=== PATIENT | male | born 1930 | race Caucasian/White ===

== ENCOUNTER 2017-05-07 11:15 | Emergency (ER) | payer MEDICARE, BC ==
[~2017-05-07] VITALS: Ht 182.9 cm; Wt 81.6 kg
[~2017-05-07 11:15] MED LIST: EYE VITAMINS PO; METOPROLOL SUCC25 MG PO; SERTRALINE HCL50 MG PO; TAMSULOSIN HCL0.4 MG PO; XARELTO PO
--- NOTE | 2017-05-07 12:23 | Diagnostic Imaging Report ---
PROCEDURE: Frontal and lateral views of the chest. COMPARISON: None. INDICATIONS: FEVER, COUGH, CHILLS FINDINGS: Lines/tubes: Left chest wall single lead cardiac device in place with tip overlying right ventricle. Lungs: The lungs are well inflated and clear. There is no evidence of pneumonia or pulmonary edema. Minimal left basilar subsegmental atelectasis. Pleura: There is no pleural effusion or pneumothorax. Heart and mediastinum: The cardiac silhouette is borderline enlarged. Aorta is calcified and mildly tortuous. Bones: No acute bony abnormality. IMPRESSION: 1. No acute cardiopulmonary disease. Dictated by: Parker Garnica M.D. on 05/07/2017 at 12:32 Electronically approved by: Parker Garnica M.D. on 05/07/2017 at 12:32
[2017-05-07 13:07] VITALS: BP 109/63
== END 2017-05-07 13:18 | disposition home or self-care (01) ==
LOC: ER 11:15
DX: J06.9 Acute upper respiratory infection, unspecified (principal); R05 Cough; Z86.73 Personal history of transient ischemic attack (TIA), and cerebral infarction without residual deficits; Z95.0 Presence of cardiac pacemaker
CPT/HCPCS: 71046

== ENCOUNTER 2018-02-27 09:37 | Emergency (ER) | payer MEDICARE, BC ==
[~2018-02-27] VITALS: Ht 182.9 cm; Wt 81.6 kg
--- OUTSIDE RECORDS SUMMARY | 2018-02-27 09:40 | XMS REPORT ---
Author Author [facility] Address Unknown Phone Unavailable Care Team Providers Care Harmonic Analyst Name Role Phone Abilio LUNA Unavailable Unavailable Problems This patient has no known problems. Allergies, Adverse Reactions, Alerts This patient has no known allergies or adverse reactions. Medications This patient has no known medications. Results Test Description Test Time Test Comments Text Results Atomic Results Result Comments CHEST 2 VIEWS [place] [address] Patient Name: GUNJAN FENTON MR #: [id number] : 1930 Age/Sex: 86/M Req #: [id number] Adm Physician: Ordered by: EDSON CORRALES Report #: [id number] Location: ER Room/Bed: Procedure: [id number] DX/CHEST 2 VIEWS Exam Date: Exam Time: REPORT STATUS: Signed PROCEDURE: Frontal and lateral views of the chest. COMPARISON: None. INDICATIONS: FEVER, COUGH, CHILLS FINDINGS: Lines/tubes: Left chest wall single lead cardiac device in place with tip overlying right ventricle. Lungs: The lungs are well inflated and clear. There is no evidence of pneumonia or pulmonary edema. Minimal left basilar subsegmental atelectasis. Pleura: There is no pleural effusion or pneumothorax. Heart and mediastinum: The cardiac silhouette is borderline enlarged. Aorta is calcified and mildly tortuous. Bones: No acute bony abnormality. IMPRESSION: 1. No acute cardiopulmonary disease. Dictated by: Parker Nowak M.D. on 05/07/2017 at 12:32 Electronically approved by: Parker Nowak M.D. on 05/07/2017 at 12:32 Dictated By: PARKER NOWAK MD [id number] Transcribed By: TONI on 05/07/17 1232 COPY TO: EDSON CORRALES
== END 2018-02-27 11:05 | disposition home or self-care (01) ==
LOC: ER 09:37
DX: J02.0 Streptococcal pharyngitis (principal); I51.9 Heart disease, unspecified; Z95.0 Presence of cardiac pacemaker
CPT/HCPCS: 99282

== ENCOUNTER 2018-05-01 18:40 | Emergency (ER) | payer MEDICARE ==
[~2018-05-01] VITALS: Ht 182.9 cm; Wt 81.6 kg
[2018-05-01] MEDS ORDERED: LIDOCAINE 1% W/EPINEPHRINE 20 ML VIAL INJ ONE (19:15)
[2018-05-01] MEDS ORDERED: PENICILLIN V P500 MG PO (20:41)
[2018-05-01 20:48] VITALS: BP 146/65
== END 2018-05-01 21:59 | disposition home or self-care (01) ==
LOC: ER 18:40
DX: K08.89 Other specified disorders of teeth and supporting structures (principal); I10 Essential (primary) hypertension; Z86.73 Personal history of transient ischemic attack (TIA), and cerebral infarction without residual deficits
CPT/HCPCS: 99282

== ENCOUNTER 2018-10-13 15:42 | Inpatient (IN) | payer MEDICARE, BC ==
[~2018-10-13] VITALS: Ht 182.9 cm; Wt 79.8 kg
[~2018-10-13 15:42] MED LIST changes: +PENICILLIN V P500 MG PO
[2018-10-13] MEDS ORDERED: SODIUM CHLORIDE 0.9% 1000ML 1,000 ML IV STA (16:20)
[2018-10-13 16:56] LABS: BASOPHILS # (AUTO) 0.3 (0.0-0.1); EOSINOPHILS # (AUTO) 0.1 (0.0-0.4); EOSINOPHILS % 0.4 % (0.0-6.0); HEMATOCRIT 35.1 % (38.2-49.6); HEMOGLOBIN 11.4 g/dL (14.0-18.0); LYMPHOCYTES # (AUTO) 1.5 (1.0-3.2); LYMPHOCYTES % 6.2 % (18.0-39.1); MEAN CORPUSCULAR HEMOGLOBIN 30.1 pg (28-32); MEAN CORPUSCULAR HGB CONC 32.5 g/dL (31-35); MEAN CORPUSCULAR VOLUME 92.6 fL (81-99); MONOCYTES % 16.2 % (4.4-11.3); NEUTROPHILS # (AUTO) 16.5 (2.1-6.9); NEUTROPHILS % 66.9 % (38.7-80.0); PLATELET COUNT 221 x10e3/uL (140-360); RED BLOOD COUNT 3.79 x10e6/uL (4.3-5.7); RED CELL DISTRIBUTION WIDTH 15.2 % (11.7-14.4)
[2018-10-13 17:11] LABS: ALBUMIN 3.6 g/dL (3.5-5.0); ALBUMIN/GLOBULIN RATIO 1.1 (0.8-2.0); ANION GAP 16.8 mmol/L (8-16); CALCIUM 9.4 mg/dL (8.4-10.2); CREATININE, SERUM 1.16 mg/dL (0.72-1.25); MAGNESIUM 2.2 MG/DL (1.3-2.1); POTASSIUM 3.8 mmol/L (3.5-5.1)
--- NOTE | 2018-10-13 17:11 | NUR ---
WENT OUTSIDE TO SMOKE AND THEN WHEN ASKED TO SIGN PAPERWORK, PT REFUSED SAID COULD AND HE WANTED A WHEELCHAIR.
[2018-10-13] MEDS ORDERED: IOPAMIDOL 370 MG/ML 200 ML INFUS..BTL INJ ONE ×2 (17:25→18:05)
[2018-10-13] MEDS ORDERED: SODIUM CHLORIDE 0.9% 50ML 50 ML ONE ×2 (17:25→18:05)
[2018-10-13 18:17] LABS: BILIRUBIN,URINE NEGATIVE (NEGATIVE); CLARITY,URINE SL CLOUDY (CLEAR); COLOR,URINE YELLOW (YELLOW); KETONES,URINE NEGATIVE (NEGATIVE); LEUKOCYTE ESTERASE ,URINE NEGATIVE (NEGATIVE); NITRITE,URINE NEGATIVE (NEGATIVE); PROTEIN,URINE DIPSTICK 1+ (NEGATIVE); URINE UROBILINOGEN 0.2 mg/dL (0.2 - 1)
--- NOTE | 2018-10-13 18:36 | Diagnostic Imaging Report ---
EXAM: CT Abdomen and Pelvis WITH contrast INDICATION: ^diarrhea and abdominal pain ^[id number] ^1745 ^Y COMPARISON: None. TECHNIQUE: Abdomen and pelvis were scanned utilizing a multidetector helical scanner from the lung base to the pubic symphysis after administration of IV contrast. Coronal and sagittal reformations were obtained. Routine protocol was performed. Scan was performed when during portal venous phase. IV CONTRAST: 100 mL of Isovue-370 ORAL CONTRAST: Water RADIATION DOSE: Total DLP: 450.9 mGy*cm Estimated effective dose: (DLP x 0.015 x size factor) mSv COMPLICATIONS: None FINDINGS: LINES and TUBES: Partially visualized ICD lead in the right ventricle. The right atrium is dilated. Subsegmental atelectasis in both lung bases. LOWER THORAX: Unremarkable HEPATOBILIARY: No focal hepatic lesions. No biliary ductal dilation. GALLBLADDER: The gallbladder is distended without visualized calcified stones. It measures 9.2 cm in length x 5 cm in width. No wall thickening. SPLEEN: No splenomegaly. Multiple granulomas in the spleen. PANCREAS: No focal masses or ductal dilatation. Fatty atrophy of the pancreas. ADRENALS: No adrenal nodules KIDNEYS/URETERS: Kidneys enhance symmetrically. No hydronephrosis. No cystic or solid mass lesions. No stones. GI TRACT: No abnormal distention, wall thickening, or evidence of bowel obstruction. Extensive diverticulosis throughout the sigmoid colon with surrounding mild hyperemia and minimal fat stranding may reflect early acute diverticulitis. No surrounding fluid collections. Appendix is nonvisualized. PELVIC ORGANS/BLADDER: Unremarkable. LYMPH NODES: No lymphadenopathy. VESSELS: Atherosclerotic calcifications of the abdominal aorta and pelvic arteries without aneurysm. PERITONEUM / RETROPERITONEUM: No free air or fluid. BONES: Moderate wedge compression deformity of L3 vertebral body. No retropulsion of the bony fragments. SOFT TISSUES: Unremarkable. IMPRESSION: Diffuse diverticulosis of the sigmoid colon with associated mild hyperemia and minimal fat stranding suggestive of early diverticulitis. Signed by: Dr. Serenity Madrid M.D. on 10/13/2018 6:33 PM
[2018-10-13 19:14] LABS: RBC,URINE 0-5 /HPF (0-5)
[2018-10-13 19:15] LABS: BACTERIA,URINE RARE /HPF; EPITHELIAL CELLS,URINE FEW /LPF
[2018-10-13] MEDS ORDERED: ONDANSETRON HCL INJ 2MG/ML 2ML 2 MG/ML VIAL IV PRN (19:45)
[2018-10-13] MEDS ORDERED: MORPHINE SULFATE INJ 4 MG/ML INJ 1ML IV PRN (19:45)
[2018-10-13] MEDS ORDERED: PROMETHAZINE HCL (IM) 25 MG/ML VIAL IV PRN (19:45)
[2018-10-13] MEDS ORDERED: LEVOFLOXACIN 500MG/D5W 100ML IV SCH (19:45)
[2018-10-13 19:51] LABS: EOSINOPHILS % (MANUAL) 2 % (0-7); LYMPHOCYTES % (MANUAL) 5 % (19-48); MONOCYTES % (MANUAL) 22 % (3.4-9.0); MYELOCYTES % (MANUAL) 1 % (0-0); NEUTROPHILS % (MANUAL) 68 % (40-74)
[2018-10-13 19:52] LABS: PLATELET ESTIMATE ADEQUATE; RBC MORPHOLOGY COMMENT NORMAL
[2018-10-13 19:53] LABS: PLATELET MORPHOLOGY COMMENT NORMAL
[2018-10-13] MEDS: LEVOFLOXACIN 500MG/D5W 100ML 100 ML IV SCH (20:10)
[2018-10-13] MEDS ORDERED: TETRACAINE HCL 0.5% OPTH SOLN 4 ML BTL OP ONE (20:15)
--- NOTE | 2018-10-13 22:00 | NUR ---
Received report from ER nurse.
[2018-10-13 22:20] VITALS: BP 135/66
--- NOTE | 2018-10-13 22:20 | NUR ---
Patient arrived to floor via stretcher. AAOx3 with slight weakness to right side. Has 2 small decub. to buttocks slightly open. Oneyda to would. Wound consult ordered.
[2018-10-13 23:09] VITALS: BP 136/59
[2018-10-13 23:09] LABS: CREATINE KINASE MB 1.3 ng/mL (0-5.0)
[2018-10-14] VITALS (8 sets, daily range): BP systolic 107–128; BP diastolic 53–68
[2018-10-14] MEDS ORDERED: METRONIDAZOLE 500MG/NS 100ML IV SCH
--- NOTE | 2018-10-14 | NUR ---
Patient resting quitly with no c/o at this time. Continue monitor
[2018-10-14] MEDS ORDERED: SODIUM CHLORIDE 0.9% 250ML 250 ML ONE (00:56)
[2018-10-14 05:21] LABS: BASOPHILS # (AUTO) 0.2 (0.0-0.1); BASOPHILS % 1.2 % (0.0-1.0); EOSINOPHILS # (AUTO) 0.1 (0.0-0.4); EOSINOPHILS % 0.4 % (0.0-6.0); HEMATOCRIT 29.3 % (38.2-49.6); HEMOGLOBIN 9.4 g/dL (14.0-18.0); LYMPHOCYTES # (AUTO) 1.9 (1.0-3.2); LYMPHOCYTES % 9.8 % (18.0-39.1); MEAN CORPUSCULAR HEMOGLOBIN 29.8 pg (28-32); MEAN CORPUSCULAR HGB CONC 32.1 g/dL (31-35); MONOCYTES # (AUTO) 3.1 (0.2-0.8); MONOCYTES % 15.9 % (4.4-11.3); NEUTROPHILS # (AUTO) 12.1 (2.1-6.9); NEUTROPHILS % 62.6 % (38.7-80.0); PLATELET COUNT 184 x10e3/uL (140-360); RED BLOOD COUNT 3.15 x10e6/uL (4.3-5.7)
--- NOTE | 2018-10-14 05:24 | NUR ---
No noted changes in patient condition.
--- NOTE | 2018-10-14 05:27 | NUR ---
Patient refused dressing to stage2 wounds. Informed patient of possible contamination of stool on open wound but patient refused.
[2018-10-14] MEDS: METRONIDAZOLE 500MG/NS 100ML 100 ML IV SCH ×5 (05:29→23:46)
[2018-10-14 05:46] LABS: CREATINE KINASE MB 1.7 ng/mL (0-5.0)
--- NOTE | 2018-10-14 07:00 | NUR ---
Rcvd patient in report this am. Patient is awake and in the bathroom at this time. No s/s of distress noted
[2018-10-14 07:05] LABS: ALANINE AMINOTRANSFERASE 11 IU/L (0-55); ALBUMIN 2.9 g/dL (3.5-5.0); ALBUMIN/GLOBULIN RATIO 0.9 (0.8-2.0); ALKALINE PHOSPHATASE 84 IU/L (40-150); ANION GAP 10.7 mmol/L (8-16); BLOOD UREA NITROGEN 16 mg/dL (7-26); BUN/CREATININE RATIO 16 (6-25); CALCIUM 8.3 mg/dL (8.4-10.2); CARBON DIOXIDE 23 mmol/L (22-29); CHLORIDE 107 mmol/L (98-107); CREATININE, SERUM 0.98 mg/dL (0.72-1.25); EST GLOMERULAR FILTRATION RATE > 60 ML/MIN (60-); GLUCOSE 92 mg/dL (74-118); POTASSIUM 3.7 mmol/L (3.5-5.1); SODIUM 137 mmol/L (136-145)
--- NOTE | 2018-10-14 08:15 | NUR ---
RCD REPORT PT RESTING ON BED NO SIGNS OF ANY DISTRESS NOTE IV PATENT FAMILY AT BED SIDE BED LOW AND LOCKED CALL LIGHT IN REACH
[2018-10-14 08:30] LABS: EOSINOPHILS % (MANUAL) 2 % (0-7); LYMPHOCYTES % (MANUAL) 10 % (19-48); METAMYELOCYTES % (MANUAL) 3 % (0-0); MONOCYTES % (MANUAL) 14 % (3.4-9.0); NEUTROPHILS % (MANUAL) 70 % (40-74)
[2018-10-14 08:31] LABS: PLATELET ESTIMATE ADEQUATE; PLATELET MORPHOLOGY COMMENT NORMAL; RBC MORPHOLOGY COMMENT NORMAL
[2018-10-14] MEDS ORDERED: OMEPRAZOLE40 MG PO (09:10)
[2018-10-14] MEDS ORDERED: XARELTO20 MG PO (09:10)
[2018-10-14] MEDS ORDERED: FINASTERIDE5 MG PO (09:10)
[2018-10-14] MEDS ORDERED: SIMVASTATIN20 MG PO (09:10)
--- NOTE | 2018-10-14 10:24 | NUR ---
WOUND CARE NURSE INITIAL CONSULTATION. 87 YEAR OLD MALE ADMITTED TO [facility] WITH DX OF DIVERTICULITIS AND DIARRHEA. HEAD TO TOE SKIN ASSESSMENT PERFORMED TODAY. PT PRESENTS WITH A 1X1CM STAGE I TO BILATERAL BUTTOCKS. THERE ARE NO OTHER AREAS OF CONCERN NOTED AT THIS TIME. NO S/S OF INFECTION. PT EDUCATED ON PRESSURE RELIED TO THE AFFECTED AREAS, STATES UNDERSTANDING. LABS: WBC: 19.40 ALB: 32.9 GLUCOSE: 2.[address] PT ON ALTERNATING LOW AIR LOSS MATTRESS PROVIDE PT WITH BILATERAL HEEL PROTECTORS. TURN PT EVERY TWO HOURS AND PRN. APPLY VENELEX WITH FOAM DRESSING DAILY AND PRN TO BILATERAL BUTTOCKS. THANKS DR. PEREZ FOR THIS CONSULTATION. Addendum: 10/14/18 at 1030 by Camilla Villarreal RN Amended: Links added.
[2018-10-14 14:11] LABS: CREATINE KINASE 133 IU/L (30-200)
[2018-10-14] MEDS: BALSAM PERU/CASTOR OIL 60 GM OINT...G. TP SCH (16:02)
[2018-10-14] MEDS ORDERED: ONDANSETRON HCL INJ 2MG/ML 2ML 2 MG/ML VIAL IV PRN (16:45)
--- NOTE | 2018-10-14 19:05 | NUR ---
PT RESTING ON BED BED SIDE REPORT GIVEN TO ONCOMING NURSE
--- NOTE | 2018-10-14 19:57 | History and Physical ---
MEDICINE HISTORY AND PHYSICAL CHIEF COMPLAINT: Abdominal pain and diarrhea. HISTORY OF PRESENT ILLNESS: An 87-year-old male, history of BPH, hyperlipidemia, atrial fibrillation on an rate control, comes into ED with complaints of diarrhea ongoing for the 6 days. The patient denies abdominal pain, but endorses having loose watery stool with no blood, ongoing for the last 6 days. He denies being foul smelling in nature. Denies any recent antibiotic use at home. Due to the worsening diarrhea, he came in to further evaluation and management evaluation. The patient denies any abdominal. He still while in the hospital today. He was started on IV antibiotics. GI has been consulted. REVIEW OF SYSTEMS: Pertinent positives: Diarrhea, loose watery stools. Pertinent negative: Denies any chest pain, palpitation, nausea, vomiting, frequency, urgency, lightheadedness, dizziness, abdominal pain, headaches, shortness of breath, cough, congestion, fever, or any other musculoskeletal etiology. The rest of 14-point review of systems are reviewed with the patient and are negative. ALLERGIES: NO KNOWN DRUG ALLERGIES. MEDICATIONS: Fenestra 5 mg daily, metoprolol ER 25 mg daily, omeprazole 40 mg daily, Xarelto 20 mg at bedtime, sertraline 50 mg daily, simvastatin 10 mg daily, and tamsulosin 0.4 mg at bedtime. PAST MEDICAL HISTORY: BPH, hyperlipidemia, atrial fibrillation on rate control anticoagulation. PAST SURGICAL HISTORY: Reports none. FAMILY HISTORY: Hypertension and diabetes. SOCIAL HISTORY: No drugs. No alcohol. Does not smoke. Good support. PHYSICAL EXAMINATION: VITAL SIGNS: Temperature is 96, pulse is 86, respiratory rate is 20, blood pressure 116/61, and pulse ox 98% on room air. GENERAL: Not in acute distress. Alert and oriented x3. Cooperative on examination. HEENT: Head is normocephalic and atraumatic. Eyes; pupils are equal, round, and reactive to light bilaterally. Extraocular movements are intact. Throat, no evidence of erythema or exudates in the posterior pharynx. Has poor dentition. NECK: Supple. Good range of motion. PULMONARY: Clear to auscultation bilaterally. No wheezing, no rales, no rhonchi, no crackles appreciated. CARDIOVASCULAR: Positive S1 and S2. No murmurs, rubs, or gallops appreciated. ABDOMEN: Soft, nondistended, and nontender to palpation. Bowel sounds present. MUSCULOSKELETAL: Strength is 5/5 throughout. No evidence of any muscle deficits on examination. No weakness appreciated. NEUROLOGICAL: Cranial nerves II through XII grossly intact. No evidence of any neurological deficits on exam. SKIN: Intact. Warm to touch. Good cap refill. PSYCHIATRIC: Normal affect and mood. EXTREMITIES: No edema. Good range of motion throughout. LABORATORY FINDINGS: Show white count on admission was 25, now down to 19, hemoglobin 9.4, hematocrit 29, and platelets of 184. Chemistry; sodium 137, potassium 3.7, chloride 107, bicarb 29, anion gap 10, BUN 16, creatinine 0.98, glucose is 92, and calcium is 8.3. LFTs were normal. Total protein 6, albumin 2.9, lipase is 15. Troponins were negative. Urinalysis was negative. C. difficile was negative. MICROBIOLOGY: None. IMAGING STUDIES: CT abdomen and pelvis shows diffuse diverticulosis of the sigmoid colon with associated mild and mild fat stranding suggesting early diverticulitis. ASSESSMENT: History of atrial fibrillation, on rate control on anticoagulation. . We will continue with IV fluids for now. Advance diet to full liquid. with very minimal pain and he is tolerating diet. He will likely be discharged home once cleared by GI. We will discharge home on oral antibiotics. Otherwise, continue same medications . MD SHANE Merritt/MATTY /[id number]
--- NOTE | 2018-10-14 20:00 | NUR ---
Patient refused bed alarm on. Stated he gets up often at night to go to the restroom.
[2018-10-14] MEDS: LEVOFLOXACIN 500MG/D5W 100ML 100 ML IV SCH (20:28)
[2018-10-14] MEDS: TAMSULOSIN HCL 0.4 MG CAP PO SCH (20:28)
[2018-10-14] MEDS: RIVAROXABAN 20 MG TABLET PO SCH (20:28)
[2018-10-14] MEDS: SIMVASTATIN 20 MG TAB PO SCH (20:29)
[2018-10-15] VITALS (7 sets, daily range): BP systolic 103–140; BP diastolic 47–63
[2018-10-15 05:25] LABS: BASOPHILS # (AUTO) 0.3 (0.0-0.1); BASOPHILS % 1.4 % (0.0-1.0); EOSINOPHILS # (AUTO) 0.3 (0.0-0.4); EOSINOPHILS % 1.3 % (0.0-6.0); HEMATOCRIT 29.9 % (38.2-49.6); HEMOGLOBIN 9.9 g/dL (14.0-18.0); LYMPHOCYTES % 10.5 % (18.0-39.1); MEAN CORPUSCULAR HEMOGLOBIN 30.6 pg (28-32); MEAN CORPUSCULAR HGB CONC 33.1 g/dL (31-35); MEAN CORPUSCULAR VOLUME 92.3 fL (81-99); MONOCYTES # (AUTO) 3.1 (0.2-0.8); MONOCYTES % 16.5 % (4.4-11.3); NEUTROPHILS # (AUTO) 10.5 (2.1-6.9); NEUTROPHILS % 55.2 % (38.7-80.0); PLATELET COUNT 182 x10e3/uL (140-360); RED BLOOD COUNT 3.24 x10e6/uL (4.3-5.7); RED CELL DISTRIBUTION WIDTH 14.9 % (11.7-14.4)
[2018-10-15 05:44] LABS: ANION GAP 11.5 mmol/L (8-16); BLOOD UREA NITROGEN 10 mg/dL (7-26); BUN/CREATININE RATIO 11 (6-25); CALCIUM 8.5 mg/dL (8.4-10.2); CARBON DIOXIDE 23 mmol/L (22-29); CHLORIDE 108 mmol/L (98-107); EST GLOMERULAR FILTRATION RATE > 60 ML/MIN (60-); GLUCOSE 109 mg/dL (74-118); POTASSIUM 3.5 mmol/L (3.5-5.1); SODIUM 139 mmol/L (136-145)
[2018-10-15] MEDS: METRONIDAZOLE 500MG/NS 100ML 100 ML IV SCH ×4 (05:47→23:48)
--- NOTE | 2018-10-15 07:00 | NUR ---
RCD PT AT BED PT IS ALERT AND ORIENTED PT RESTING ON BED IV PATENT BED LOW AND LOCKED CALL LIGHT IN REACH
[2018-10-15] MEDS: PANTOPRAZOLE SOD 40 MG TABEC PO SCH (07:30)
[2018-10-15] MEDS: FINASTERIDE 5 MG TAB PO SCH (09:00)
[2018-10-15] MEDS: BALSAM PERU/CASTOR OIL 60 GM OINT...G. TP SCH (09:00)
[2018-10-15] MEDS: SERTRALINE HCL 50 MG TAB PO SCH (09:00)
[2018-10-15] MEDS: METOPROLOL SUCCINATE 25 MG TAB XL PO SCH (09:00)
[2018-10-15] MEDS ORDERED: BALSAM PERU/CASTOR OIL 60 GM OINT...G. TP SCH (12:00)
--- NOTE | 2018-10-15 18:54 | NUR ---
PT RESTING ON BED BED SIDE REPORT GIVEN TO ONCOMING NURSE
--- NOTE | 2018-10-15 19:48 | Progress Note ---
DATE: 10/15/2018 Medicine Progress Note SUBJECTIVE: The patient is doing well today with no complaints. His white count is still elevated. I feel like he may have some underlying CLL. He does not know what his white count is in the past. He is afebrile and his symptoms have improved tremendously. He is on a regular diet. PHYSICAL EXAMINATION: VITAL SIGNS: Temperature is 96, pulse 60, respiratory rate is 18, blood pressure 140/63, and pulse ox 97% on room air. GENERAL: Not in acute distress. Alert and oriented x3. Cooperative on examination. HEENT: Head is normocephalic and atraumatic. Eyes, pupils are equal, round, and reactive to light bilaterally. Extraocular movements are intact. Throat, no evidence of erythema or exudates in the posterior pharynx. Has poor dentition. NECK: Supple. Good range of motion. PULMONARY: Clear to auscultation bilaterally. No wheezing, no rales, no rhonchi, no crackles appreciated. CARDIOVASCULAR: Positive S1 and S2. No murmurs, rubs, or gallops appreciated. ABDOMEN: Soft, nondistended, and nontender to palpation. Bowel sounds present. MUSCULOSKELETAL: Strength is 5/5 throughout. No evidence of any muscle deficits on examination. No weakness appreciated. NEUROLOGICAL: Cranial nerves II through XII are grossly intact. No evidence of neurological deficits on exam. SKIN: Intact. Warm to touch. Good cap refill. PSYCHIATRIC: Normal affect and mood. EXTREMITIES: No edema. Good range of motion throughout. LABORATORY FINDINGS: Show white count 18.9, hemoglobin 9.9, hematocrit 29.9, and platelets are 182. Chemistry; sodium 139, potassium 3.5, chloride 108, bicarb 23, anion gap of 11, BUN 10, creatinine 0.9, glucose is 109, and calcium is 8.5. Troponins were all negative. His lipase was found to be negative. IMPRESSION: 1. Abdominal pain secondary to acute diverticulitis, early stages. 2. Nausea, vomiting, and dehydration secondary to #1. 3. History of diverticulosis. 4. History of benign prostatic hyperplasia. 5. Hyperlipidemia. 6. Depression. 7. Coronary artery disease, on Xarelto according to the family, atrial fibrillation. PLAN: At this time, continue with IV antibiotics. GI consulted to further evaluate and manage. The patient looks great, alert and oriented x4, sitting in a chair with no issues. I am concerned that his white count could be secondary to some sort of CLL or some other etiology. If his white count does not improve by tomorrow, I will go ahead and consider a Hematology consultation for further management and care. I discussed this with the family. They verbalized understanding and agree with plan of care. Otherwise, encourage ambulation and otherwise we will go from there. MD SHANE Merritt/MATTY /[id number]
[2018-10-15] MEDS: RIVAROXABAN 20 MG TABLET PO SCH (20:15)
[2018-10-15] MEDS: TAMSULOSIN HCL 0.4 MG CAP PO SCH (20:15)
[2018-10-15] MEDS: LEVOFLOXACIN 500MG/D5W 100ML 100 ML IV SCH (20:15)
[2018-10-15] MEDS: SIMVASTATIN 20 MG TAB PO SCH (20:15)
[2018-10-16] VITALS (9 sets, daily range): BP systolic 88–123; BP diastolic 50–70
--- NOTE | 2018-10-16 01:32 | NUR ---
bp rechecked 102/53 mmhg. asymptomatic.
[2018-10-16 05:30] LABS: BASOPHILS # (AUTO) 0.3 (0.0-0.1); BASOPHILS % 1.7 % (0.0-1.0); EOSINOPHILS # (AUTO) 0.3 (0.0-0.4); EOSINOPHILS % 1.4 % (0.0-6.0); HEMATOCRIT 29.4 % (38.2-49.6); HEMOGLOBIN 9.7 g/dL (14.0-18.0); LYMPHOCYTES # (AUTO) 1.8 (1.0-3.2); LYMPHOCYTES % 10.2 % (18.0-39.1); MEAN CORPUSCULAR HEMOGLOBIN 30.2 pg (28-32); MEAN CORPUSCULAR VOLUME 91.6 fL (81-99); MONOCYTES # (AUTO) 2.1 (0.2-0.8); MONOCYTES % 12.3 % (4.4-11.3); NEUTROPHILS # (AUTO) 10.1 (2.1-6.9); NEUTROPHILS % 58.1 % (38.7-80.0); PLATELET COUNT 201 x10e3/uL (140-360); RED BLOOD COUNT 3.21 x10e6/uL (4.3-5.7); RED CELL DISTRIBUTION WIDTH 14.8 % (11.7-14.4)
[2018-10-16 05:45] LABS: ANION GAP 10.2 mmol/L (8-16); BLOOD UREA NITROGEN 13 mg/dL (7-26); BUN/CREATININE RATIO 15 (6-25); CALCIUM 8.2 mg/dL (8.4-10.2); CARBON DIOXIDE 22 mmol/L (22-29); CHLORIDE 110 mmol/L (98-107); CREATININE, SERUM 0.89 mg/dL (0.72-1.25); EST GLOMERULAR FILTRATION RATE > 60 ML/MIN (60-); GLUCOSE 103 mg/dL (74-118); POTASSIUM 3.2 mmol/L (3.5-5.1); SODIUM 139 mmol/L (136-145)
[2018-10-16] MEDS: METRONIDAZOLE 500MG/NS 100ML 100 ML IV SCH ×4 (06:03→23:30)
[2018-10-16 07:39] LABS: BAND NEUTROPHILS % (MANUAL) 1 %; EOSINOPHILS % (MANUAL) 1 % (0-7); LYMPHOCYTES % (MANUAL) 24 % (19-48); METAMYELOCYTES % (MANUAL) 2 % (0-0); MONOCYTES % (MANUAL) 7 % (3.4-9.0); NEUTROPHILS % (MANUAL) 65 % (40-74); PLATELET ESTIMATE ADEQUATE
[2018-10-16 07:40] LABS: PLATELET MORPHOLOGY COMMENT NORMAL; RBC MORPHOLOGY COMMENT NORMAL
[2018-10-16] MEDS: PANTOPRAZOLE SOD 40 MG TABEC PO SCH (08:38)
[2018-10-16] MEDS: FINASTERIDE 5 MG TAB PO SCH (08:40)
[2018-10-16] MEDS: BALSAM PERU/CASTOR OIL 60 GM OINT...G. TP SCH (08:40)
[2018-10-16] MEDS: SERTRALINE HCL 50 MG TAB PO SCH (08:40)
[2018-10-16] MEDS: METOPROLOL SUCCINATE 25 MG TAB XL PO SCH (08:57)
[2018-10-16] MEDS: ACETAMINOPHEN 325 MG TAB PO PRN ×2 (08:58→13:07)
--- NOTE | 2018-10-16 09:23 | NUR ---
EDUCATED ABOUT IMM, SIGNED, FILED IN CHART, WITH COPY LEFT WITH FAMILY AT BEDSIDE
[2018-10-16] MEDS ORDERED: POTASSIUM CHLORIDE 20 MEQ TAB CR PO ONE (17:45)
[2018-10-16] MEDS ORDERED: HYDROCODONE/APAP 5MG-325MG TAB PO PRN (18:45)
--- NOTE | 2018-10-16 19:00 | NUR ---
Handoff report to oncoming nurse, patient sitting in chair no s/s of distress, patient verbalizing needs.
--- NOTE | 2018-10-16 19:45 | Progress Note ---
DATE: 10/16/2018 Medicine Progress Note SUBJECTIVE: The patient is acting very well. He is tolerating diet well and has no abdominal pain. Vital signs were stable. No new issues. His white count is still elevated at 17. I am thinking that this gentleman may have some sort of bone marrow issues, which I will go ahead and consult Hematology. I am going to communicate with him and he will be coming here tonight to see him. PHYSICAL EXAMINATION: VITAL SIGNS: Temperature 98, pulse 62, respirations 18, blood pressure 108/61, pulse ox 98% on room air. GENERAL: Not in acute distress. Alert and oriented x3. Cooperative on examination. HEENT: Head is normocephalic and atraumatic. Eyes, pupils are equal, round, and reactive to light bilaterally. Extraocular movements are intact bilaterally. Throat, no evidence of erythema or exudates in the posterior pharynx. Has poor dentition. NECK: Supple. Good range of motion. PULMONARY: Clear to auscultation bilaterally. No wheezing, no rales, no rhonchi, no crackles appreciated. CARDIOVASCULAR: Positive S1 and S2. No murmurs, rubs, or gallops appreciated. ABDOMEN: Soft, nondistended, and nontender to palpation. Bowel sounds present. MUSCULOSKELETAL: Strength is 5/5 throughout. No evidence of any muscle deficits on examination. No weakness appreciated. NEUROLOGICAL: Cranial nerves II through XII grossly intact. No evidence of any neurological deficits on exam. SKIN: Intact. Warm to touch. Good cap refill. PSYCHIATRIC: Normal affect and mood. EXTREMITIES: No edema. Good range of motion throughout. LABORATORY DATA: Lab findings show white count of 17, hemoglobin 9.7, hematocrit 29, platelets of 201. Chemistry; sodium 139, potassium 3.2, chloride 110, bicarb 22, anion gap of 10, BUN 13, creatinine is 0.89, glucose 103, calcium 8.2. MICROBIOLOGY: None. IMPRESSION: 1. Acute diverticulitis, improving. 2. Nausea, vomiting and dehydration, resolved. 3. History of diverticulosis. 4. Benign prostatic hypertrophy. 5. Hyperlipidemia. 6. Depression. 7. History of coronary artery disease on Xarelto according to the family secondary to atrial fibrillation. 8. Leukocytosis, unknown etiology. PLAN: Continue with IV antibiotics. GI consulted. The patient is doing well, alert, oriented, and talking. Eating well with no complaints. I did go ahead and consult with Hematology. I have also communicated with Hematology, Dr. Bautista. I feel like the patient's underlying white count could be from something else, but the patient looks clinically well, has no fever. I do not really think that this is now infectious etiology, it could be from some bone marrow proliferation, but we will go ahead and see what Hematology can say and think about this. [facility] but [facility]. We will get labs in the morning. Replace his potassium. Hopefully, if I get recommendations I can discharge him tomorrow. MD SHANE Merritt/MATTY /[id number]
[2018-10-16] MEDS: TAMSULOSIN HCL 0.4 MG CAP PO SCH (20:01)
[2018-10-16] MEDS: LEVOFLOXACIN 500MG/D5W 100ML 100 ML IV SCH (20:01)
[2018-10-16] MEDS: RIVAROXABAN 20 MG TABLET PO SCH (20:01)
[2018-10-16] MEDS: SIMVASTATIN 20 MG TAB PO SCH (20:01)
[2018-10-16] MEDS: TRAZODONE HCL 50 MG TAB PO PRN (21:38)
[2018-10-17] VITALS (9 sets, daily range): BP systolic 102–144; BP diastolic 54–78
[2018-10-17] MEDS: METRONIDAZOLE 500MG/NS 100ML 100 ML IV SCH ×4 (05:35→23:50)
[2018-10-17 05:39] LABS: BASOPHILS # (AUTO) 0.4 (0.0-0.1); BASOPHILS % 1.8 % (0.0-1.0); EOSINOPHILS # (AUTO) 0.4 (0.0-0.4); EOSINOPHILS % 1.9 % (0.0-6.0); HEMATOCRIT 29.3 % (38.2-49.6); HEMOGLOBIN 9.5 g/dL (14.0-18.0); LYMPHOCYTES # (AUTO) 2.2 (1.0-3.2); LYMPHOCYTES % 10.3 % (18.0-39.1); MEAN CORPUSCULAR HGB CONC 32.4 g/dL (31-35); MEAN CORPUSCULAR VOLUME 92.4 fL (81-99); MONOCYTES # (AUTO) 2.6 (0.2-0.8); NEUTROPHILS # (AUTO) 12.2 (2.1-6.9); NEUTROPHILS % 56.1 % (38.7-80.0); PLATELET COUNT 223 x10e3/uL (140-360); RED BLOOD COUNT 3.17 x10e6/uL (4.3-5.7); RED CELL DISTRIBUTION WIDTH 15.2 % (11.7-14.4)
[2018-10-17 05:59] LABS: ANION GAP 10.7 mmol/L (8-16); BLOOD UREA NITROGEN 14 mg/dL (7-26); BUN/CREATININE RATIO 16 (6-25); CALCIUM 8.4 mg/dL (8.4-10.2); CARBON DIOXIDE 22 mmol/L (22-29); CHLORIDE 112 mmol/L (98-107); CREATININE, SERUM 0.87 mg/dL (0.72-1.25); EST GLOMERULAR FILTRATION RATE > 60 ML/MIN (60-); GLUCOSE 109 mg/dL (74-118); POTASSIUM 3.7 mmol/L (3.5-5.1); SODIUM 141 mmol/L (136-145)
--- NOTE | 2018-10-17 07:08 | NUR ---
Pt received resting in bed. Alert and oriented x4. Oriented to staff and surroundings. Encouraged to press call gray if help needed. Pt verbalized understanding of teaching. Will monitor
--- NOTE | 2018-10-17 08:10 | NUR ---
All meds given as ordered. Call gray within reach. Emotional support given. Will monitor
[2018-10-17] MEDS: BALSAM PERU/CASTOR OIL 60 GM OINT...G. TP SCH (08:13)
[2018-10-17] MEDS: METOPROLOL SUCCINATE 25 MG TAB XL PO SCH (08:13)
[2018-10-17] MEDS: PANTOPRAZOLE SOD 40 MG TABEC PO SCH (08:13)
[2018-10-17] MEDS: FINASTERIDE 5 MG TAB PO SCH (08:13)
[2018-10-17] MEDS: SERTRALINE HCL 50 MG TAB PO SCH (08:13)
[2018-10-17 12:48] LABS: ANISOCYTOSIS SLIGHT; EOSINOPHILS % (MANUAL) 1 % (0-7); HYPOCHROMASIA SLIGHT; LYMPHOCYTES % (MANUAL) 16 % (19-48); METAMYELOCYTES % (MANUAL) 3 % (0-0); MONOCYTES % (MANUAL) 26 % (3.4-9.0); MYELOCYTES % (MANUAL) 4 % (0-0); NEUTROPHILS % (MANUAL) 50 % (40-74); RBC MORPHOLOGY COMMENT NORMAL
[2018-10-17 12:49] LABS: PLATELET ESTIMATE ADEQUATE; PLATELET MORPHOLOGY COMMENT NORMAL
[2018-10-17] MEDS ORDERED: DIATRIZOATE MEGL/DIATRIZOA SOD 30 ML BTL PO ONE (15:24)
[2018-10-17] MEDS ORDERED: SODIUM CHLORIDE 0.9% 50ML 50 ML ONE (18:19)
[2018-10-17] MEDS ORDERED: IOPAMIDOL 370 MG/ML 200 ML INFUS..BTL INJ ONE (18:19)
--- NOTE | 2018-10-17 18:19 | NUR ---
Pt showered. Saline lock inserted into right forearm #20. Emotional support given. Will endorse to oncoming shift
--- NOTE | 2018-10-17 18:23 | Progress Note ---
DATE: 10/17/2018 Medicine Progress Note SUBJECTIVE: The patient is doing well today with no complaints. His white count is still elevated and I had a long discussion with the patient and also with Hematology. The patient is afebrile and tolerating diet well. He has no abdominal pain. He has no complaints whatsoever. I feel like this patient likely has some sort of myeloproliferative disorder. At this time per Hematology, they recommend him follow up as an outpatient in our office for flow cytometry. I also discussed this with GI and it was felt that we will just get a CT abdomen and pelvis with IV contrast and see if there is anything new, but if there is not, he will be probably safe to be discharged home. He is currently doing well and I discussed this with the patient and his at bedside. PHYSICAL EXAMINATION: VITAL SIGNS: Temperature is 95.7, pulse 63, respiratory rate is 20, blood pressure 113/59, and pulse ox 99% on room air. GENERAL: Not in acute distress. Alert and oriented x3. Cooperative on examination. HEENT: Head is normocephalic, atraumatic. Eyes; pupils are equal, round, and reactive to light bilaterally. Extraocular movements are intact bilaterally. Throat; no evidence of erythema or exudates in the posterior pharynx. Has poor dentition. NECK: Supple. Good range of motion. PULMONARY: Clear to auscultation bilaterally. No wheezing, no rales, no rhonchi. No crackles appreciated. CARDIOVASCULAR: Positive S1, S2. No murmurs, rubs, or gallops appreciated. ABDOMEN: Soft, nondistended, and nontender to palpation. Bowel sounds present. MUSCULOSKELETAL: Strength is 5/5 throughout. No evidence of any muscle deficits on examination. No weakness appreciated. NEUROLOGICAL: Cranial nerves II through XII are grossly intact. No evidence of any neurological deficits on exam. SKIN: Intact. Warm to touch. Good cap refill. PSYCHIATRIC: Normal affect and mood. EXTREMITIES: No edema. Good range of motion throughout. LAB FINDINGS: White count is 21.6, hemoglobin 9.5, hematocrit is 29, platelets of 223. Chemistry; sodium 141, potassium 3.7, chloride 112, bicarb 22, anion gap of 10, BUN is 14, creatinine is 0.87, glucose 109, calcium 8.4. MICROBIOLOGY: None. IMAGING STUDIES: Repeat CT abdomen and pelvis is pending. IMPRESSION: 1. Acute diverticulitis, improving. 2. Nausea, vomiting, dehydration, resolved. 3. History of diverticulosis. 4. Benign prostatic hypertrophy. 5. Hyperlipidemia. 6. Depression. 7. History of coronary artery disease, on Xarelto due to secondary atrial fibrillation according to the family. 8. 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 PLAN: At this time, I have discussed this case with the Hematology, who feels that this could be reactive versus a myeloproliferative disorder. Needs outpatient followup with him in his office to get a flow cytometry. At this time, he has cleared the patient for discharge home from his standpoint. I also had a long discussion with GI and he also is not very convinced that this is an infectious etiology. He feels like this is likely a myeloproliferative disorder. We did discuss to go ahead and get a CT abdomen and pelvis with IV contrast just to see if there is anything new or if there is any evidence of any abscess or worsening inflammation that could explain his white count. We will continue with antibiotics for now. Also discharged on oral antibiotics postdischarge. The patient looks great and near oriented x4. He is eating. He is afebrile, has no complaints. is also stating that he looks great with no issues. He agreed to stay overnight. He wants me to repeat his labs in the morning, so I will go ahead and do. We will continue same plan of care and await the CT abdomen and pelvis with IV contrast results. MD SHANE Merritt/MATTY /[id number]
--- NOTE | 2018-10-17 19:30 | NUR ---
Patient arrived to the unit as transfer from [facility] Rm 199 to Room 296 via hospital bed. Patient alert and oriented x3. No distress or discomfort noted. Pt ambulatory with standby assist prn. Pt refused to use urinal and stated he prefers to use bathroom to urinate. Some redness and scabs between buttocks noted. Calazime cream applied and covered with Allevyn dressing. Pt on scheduled IV antibiotics. Call gray within reach.
[2018-10-17] MEDS: LEVOFLOXACIN 500MG/D5W 100ML 100 ML IV SCH (20:17)
[2018-10-17] MEDS: SIMVASTATIN 20 MG TAB PO SCH (20:17)
[2018-10-17] MEDS: TAMSULOSIN HCL 0.4 MG CAP PO SCH (20:17)
[2018-10-17] MEDS: RIVAROXABAN 20 MG TABLET PO SCH (20:17)
--- NOTE | 2018-10-17 21:23 | NUR ---
Pt transferred to [facility], report given to Ruben YATES. Pt has no complaints at this time.
--- NOTE | 2018-10-17 21:30 | Diagnostic Imaging Report ---
EXAM: CT Abdomen and Pelvis WITH contrast INDICATION: Abdominal pain, diarrhea COMPARISON: Abdominal CT 10/13/2018. TECHNIQUE: Abdomen and pelvis were scanned utilizing a multidetector helical scanner from the lung base to the pubic symphysis after administration of IV contrast. Coronal and sagittal reformations were obtained. Routine protocol was performed. Scan was performed when during portal venous phase. IV CONTRAST: 100 mL of Isovue 370 ORAL CONTRAST: Gastroview COMPLICATIONS: None RADIATION DOSE: Total DLP: 429 mGy*cm Estimated effective dose: (DLP x 0.015 x size factor) mSv CTDIvol has been reviewed. It is below the limits set by the Radiation Protocol Committee (RPC). Dose modulation, iterative reconstruction, and/or weight based adjustment of the mA/kV was utilized to reduce the radiation dose to as low as reasonably achievable. FINDINGS: LINES and TUBES: None. LOWER THORAX: Moderate cardiomegaly and a single pacer lead in the right ventricular apex. Stable scarring/atelectasis in the lung bases. Right hemidiaphragm eventration. HEPATOBILIARY: Calcified granuloma in the right hepatic lobe. No focal hepatic lesions. No biliary ductal dilation. GALLBLADDER: No radio-opaque stones or sludge. No wall thickening. SPLEEN: No splenomegaly. Multiple calcified granulomas. PANCREAS: A 1.4 cm oval hypodensity in the pancreatic tail (series 2 image 32). Mild atrophy of the pancreatic head. No ductal dilatation. ADRENALS: No adrenal nodules KIDNEYS/URETERS: Kidneys enhance symmetrically. No hydronephrosis. A 2.4 cm simple cyst in the right renal inferior pole. No solid mass lesions. No stones. GI TRACT: Similar appearance of the sigmoid colon where there is diverticulosis minimal wall thickening, surrounding mild hyperemia, and minimal fat stranding. No bowel obstruction. Appendix is not clearly identified. There is however no fat stranding or adenopathy in the right lower quadrant to suggest appendicitis. PELVIC ORGANS/BLADDER: Unremarkable. LYMPH NODES: No lymphadenopathy. VESSELS: Calcified splenic artery aneurysm. Atherosclerotic calcifications of the abdominal aorta and major branches.. PERITONEUM / RETROPERITONEUM: No free air or fluid. BONES: Moderate wedge compression deformity of L3 vertebral body. No retropulsion of the bony fragments. Degenerative changes in the spine hips and pelvis. SOFT TISSUES: Changes of inguinal hernia repair, without recurrence. IMPRESSION: 1. Similar appearance of the sigmoid colon where there is diffuse diverticulosis and subtle findings of diverticulitis. No abscess. No perforation. 2. An indeterminate 1.4 cm cystic lesion in the pancreatic tail. Recommend MRI of the pancreas with contrast for further evaluation. Signed by: Malcolm Martinez DO on 10/17/2018 9:27 PM
[2018-10-17] MEDS: TRAZODONE HCL 50 MG TAB PO PRN (21:54)
[2018-10-17] MEDS ORDERED: SODIUM CHLORIDE 0.9% 250ML 250 ML ONE (23:39)
[2018-10-18] VITALS: BP 108/50
--- NOTE | 2018-10-18 00:14 | Consultation ---
DATE OF CONSULTATION: 10/16/2018 REQUESTING PHYSICIAN: Sepideh Magana MD CONSULTING PHYSICIAN: Chi Bautista MD, Hematology-Oncology Service. REASON FOR CONSULTATION: Evaluation and management of patient with severe leukocytosis. HISTORY OF PRESENTING ILLNESS: Mr. Torres is a very pleasant 87-year-old gentleman with multiple medical problems with known history of hyperlipidemia, benign prostatic hypertrophy, and atrial fibrillation, who was presented to the Emergency Department due to abdominal pain and diarrhea. He was seen and evaluated by Medicine Service and admitted to inpatient floor. His initial workup revealed diffuse diverticulosis with sigmoid colon suggestive of diverticulitis. He was also noted to have leukocytosis. He was started on IV antibiotic, but due to persistent leukocytosis, Hematology-Oncology has been consulted to assist with the management. PAST MEDICAL HISTORY: 1. Benign prostatic hypertrophy. 2. Hyperlipidemia. 3. Atrial fibrillation, on anticoagulation. PAST SURGICAL HISTORY: None. FAMILY HISTORY: Hypertension and diabetes mellitus. SOCIAL HISTORY: Denies history of smoking, alcohol use, or illicit drug use. ALLERGIES: NO KNOWN DRUG ALLERGIES. CURRENT MEDICATIONS: Reviewed as per electronic medical record. REVIEW OF SYSTEMS: A 14-point review of systems is negative except as mentioned in history of presenting illness. PHYSICAL EXAMINATION: VITAL SIGNS: Reviewed as per electronic medical record. HEENT: PERRLA. Extraocular movements are intact. Head is atraumatic and normocephalic. NECK: Supple. CVS: S1, S2 audible. RESPIRATORY: Decreased bilateral air entry. ABDOMEN: Soft. Positive bowel sounds. EXTREMITIES: Negative edema. NEURO: The patient is alert and awake. LABORATORY DATA: Reviewed as per electronic medical record. ASSESSMENT AND PLAN: Mr. Torres is a very pleasant 87-year-old gentleman with known history of hyperlipidemia, benign prostatic hypertrophy, and atrial fibrillation, who was hospitalized due to abdominal pain. Workup revealed possible diverticulitis. He was started on IV antibiotic. Apparently, he is having persistent leukocytosis, subsequently Hematology-Oncology has been consulted to assist with the management. I reviewed the record and discussed at length with the patient about his current disease and importance of further workup. Overall this appears to be reactive phenomena; however, underlying myeloproliferative disorder cannot be ruled out completely. At this point, recommendation will be to closely monitor; however, I would recommend outpatient followup and possible flow cytometry and bone marrow biopsy if the patient had persistent leukocytosis. Thank you for the consult. I will continue to be available. Please call with questions. MD TEA Rueda/MATTY /[id number]
[2018-10-18 04:00] VITALS: BP 114/54
[2018-10-18 06:05] LABS: BASOPHILS # (AUTO) 0.4 (0.0-0.1); BASOPHILS % 1.8 % (0.0-1.0); EOSINOPHILS # (AUTO) 0.4 (0.0-0.4); EOSINOPHILS % 1.6 % (0.0-6.0); HEMATOCRIT 30.5 % (38.2-49.6); HEMOGLOBIN 9.9 g/dL (14.0-18.0); LYMPHOCYTES # (AUTO) 2.1 (1.0-3.2); LYMPHOCYTES % 8.7 % (18.0-39.1); MEAN CORPUSCULAR HEMOGLOBIN 30.3 pg (28-32); MEAN CORPUSCULAR HGB CONC 32.5 g/dL (31-35); MEAN CORPUSCULAR VOLUME 93.3 fL (81-99); MONOCYTES # (AUTO) 2.5 (0.2-0.8); MONOCYTES % 10.5 % (4.4-11.3); NEUTROPHILS # (AUTO) 13.3 (2.1-6.9); NEUTROPHILS % 54.8 % (38.7-80.0); PLATELET COUNT 231 x10e3/uL (140-360); RED BLOOD COUNT 3.27 x10e6/uL (4.3-5.7); RED CELL DISTRIBUTION WIDTH 15.1 % (11.7-14.4)
[2018-10-18] MEDS: METRONIDAZOLE 500MG/NS 100ML 100 ML IV SCH ×3 (06:21→17:24)
[2018-10-18] MEDS: PANTOPRAZOLE SOD 40 MG TABEC PO SCH (06:21)
[2018-10-18 06:25] LABS: ANION GAP 10.9 mmol/L (8-16); BLOOD UREA NITROGEN 11 mg/dL (7-26); BUN/CREATININE RATIO 11 (6-25); CALCIUM 8.4 mg/dL (8.4-10.2); CARBON DIOXIDE 24 mmol/L (22-29); CHLORIDE 108 mmol/L (98-107); CREATININE, SERUM 0.96 mg/dL (0.72-1.25); EST GLOMERULAR FILTRATION RATE > 60 ML/MIN (60-); GLUCOSE 93 mg/dL (74-118); POTASSIUM 3.9 mmol/L (3.5-5.1); SODIUM 139 mmol/L (136-145)
--- NOTE | 2018-10-18 06:56 | NUR ---
RECEIVED PATIENT RESTING IN BED. NO ACUTE DISTRESS NOTED. NO S/S OF PAIN NOTED AT THIS TIME. CALL LIGHT WITHIN REACH. BED IN THE LOWEST POSITION.
[2018-10-18 07:36] VITALS: BP 113/67
[2018-10-18 07:49] VITALS: BP 113/67
[2018-10-18] MEDS: FINASTERIDE 5 MG TAB PO SCH (09:01)
[2018-10-18] MEDS: SERTRALINE HCL 50 MG TAB PO SCH (09:02)
[2018-10-18] MEDS: METOPROLOL SUCCINATE 25 MG TAB XL PO SCH (09:02)
[2018-10-18] MEDS: BALSAM PERU/CASTOR OIL 60 GM OINT...G. TP SCH (09:45)
[2018-10-18 11:00] LABS: BAND NEUTROPHILS % (MANUAL) 4 %; LYMPHOCYTES % (MANUAL) 19 % (19-48); METAMYELOCYTES % (MANUAL) 4 % (0-0); MONOCYTES % (MANUAL) 13 % (3.4-9.0); MYELOCYTES % (MANUAL) 2 % (0-0); NEUTROPHILS % (MANUAL) 57 % (40-74); PLATELET MORPHOLOGY COMMENT NORMAL
[2018-10-18 11:01] LABS: ANISOCYTOSIS S; BURR CELLS F; OVALOCYTES FEW; PLATELET ESTIMATE ADEQUATE; POIKILOCYTOSIS F; RBC MORPHOLOGY COMMENT ABNORMAL; TEAR DROP CELLS FEW
[2018-10-18 11:30] VITALS: BP 110/58
--- NOTE | 2018-10-18 13:48 | NUR ---
Nutrition Screen Note RD Recommendation for Physician: -Continue current diet as ordered Plan of Care: RD following, monitoring for tolerance and adequacy, diet education Nutrition reason for involvement: LOS Primary Diagnose(s): diverticulitis, diarrhea PMH: BPH, Afib, HLD Ht: 72in Wt: 176lb BMI: 23.9kg/m2 IBW: 178lb +/- 10% RD Assessment: (10/18) Chart reviewed. Labs and meds reviewed. 87yo M, who was admitted for abdominal pain and diarrhea. Visited pt in the room. Pt was tolerating current diet. No complains of nausea or vomiting. Diarrhea has resolved. Pt denied any chewing or swallowing difficulty. Provided education and handouts on low fiber diet. All questions have been answered. Current Diet: GI soft diet Malnutrition Evaluation (10/18/2018) The patient does not meet criteria for a specified degree of malnutrition at this time. Will re-evaluate at follow-up as appropriate. Diet Education Needs Assessment: Diet education indicated, pt was agreeable. Learner(s): pt Barriers: none Cultural/Language Modifications: Pt speaks Czech. Readiness: acceptance Method: Handouts, explanation Topics: Low fiber diet Understanding/Compliance: Expect fair understanding/compliance from pt. Will benefit from reinforcement. All questions have been answered. Nutrition Care Level: low Signed: Codie Ahn, MS, RD, LD
[2018-10-18 15:28] VITALS: BP 118/58
--- NOTE | 2018-10-18 18:49 | NUR ---
IV TO RIGHT FOREARM DCD WITH TIP INTACT, PRESSURE APPLIED TO SITE, NO BLEEDING NOTED.
--- NOTE | 2018-10-18 19:13 | NUR ---
PT IS RESTING IN THE CHAIR WITH FAMILY AT BEDSIDE. RESPIRATION IS EVEN AND UNLABORED, NO DISTRESS NOTED. BED IN THE LOWEST POSITION, LOCKED, AND CALL LIGHT WITHIN REACH. WILL CONTINUE TO MONITOR.
--- NOTE | 2018-10-18 19:13 | NUR ---
REPORT GIVEN TO ONCOMING NURSE. PATIENT IS RESTING IN RECLINER. NO ACUTE DISTRESS NOTED. FAMILY AT BEDSIDE. CALL LIGHT WITHIN REACH. PATIENT TO BE DISCHARGED TONIGHT.
--- NOTE | 2018-10-18 19:25 | NUR ---
PT LEFT UNIT VIA WHEELCHAIR AT 1925 WITH FAMILY. RESPIRATION IS EVEN AND UNLABORED, NO DISTRESS NOTED. PT LET WITH ALL OF HIS BELONGS.
--- NOTE | 2018-10-18 21:26 | Progress Note ---
DATE: 10/18/2018 Followup Note CHIEF COMPLAINT: The patient with severe leukocytosis, admitted due to diverticulitis. Overall, the patient has been doing well with improved symptoms. OBJECTIVE: VITAL SIGNS: Reviewed as per electronic medical record. HEENT: PERRLA. Extraocular movements are intact. Head is atraumatic and normocephalic. NECK: Supple. CVS: S1, S2 audible. RESPIRATORY: Decreased bilateral air entry. ABDOMEN: Soft. Positive bowel sounds. EXTREMITIES: Negative edema. NEURO: The patient is alert and awake. LABORATORY DATA: Reviewed. ASSESSMENT AND PLAN: The patient will follow up with me in the outpatient setting. MD TEA Rueda/MODL /[id number]
--- NOTE | 2018-10-18 23:05 | Consultation ---
DATE OF CONSULTATION: REASON FOR CONSULTATION: Diverticulitis. HISTORY OF PRESENT ILLNESS: This patient who is a very pleasant 87-year-old white male, who is followed by the PA, comes into the hospital with abdominal pain. He was admitted. He was known to have leukocytosis. He also diagnosed with diverticulitis. He was seen by GI. He has been getting better, but the question is about this leukocytosis and the antibiotic. The patient tells me he has no fever, no chills, and since he came here he is feeling better. His daughter at the bedside. The patient is telling me he usually goes to [facility]. The last time was a year ago and he did a blood test, but it was okay as far as he know. The patient when he first came has abdominal pain and diarrhea, but since admission, he has been on Cipro, Levaquin, and Flagyl are resolved. PAST MEDICAL HISTORY: Benign prostatic hypertrophy, atrial fibrillation, and hyperlipidemia. PAST SURGICAL HISTORY: He denies. ALLERGIES: NKA. SOCIAL HISTORY: There is no smoking, drug abuse, or alcohol abuse. FAMILY HISTORY: Noncontributory. REVIEW OF SYSTEMS: At the present time review of systems; HEENT: Negative. PULMONARY: Negative. CARDIAC: Negative. : Negative. SKIN: There is no rash. JOINT: Negative. All within normal limit. PHYSICAL EXAMINATION: GENERAL: He is currently alert and oriented, does not seem to be in acute distress. VITAL SIGNS: Stable. Afebrile. HEENT: Normocephalic. He is not icteric. NECK: Supple. No JVD. No lymphadenopathy. No thyromegaly. CHEST: Clear bilateral. HEART: S1, S2. No S3, S4, or murmur. ABDOMEN: Soft. Bowel sounds present. No tenderness. EXTREMITIES: No edema. SKIN: There is no rash. LABORATORY DATA: His laboratory data since admission was reviewed. Showed a white count when he first came was 19.4, went up to 24.25, hemoglobin 9.9, hematocrit 30. The diff was also reviewed. His sodium 139, potassium 3.9, creatinine 0.96. CAT scan when he first came reviewed and from 10/17 also reviewed and both results were discussed with the family and the patient. IMPRESSION: 1. Diverticulitis. Clinically, seems to be getting better. I would recommend to discharge him with Levaquin 500 mg p.o. daily, Flagyl 500 mg p.o. t.i.d. for two more weeks. Follow up clinically. He can see me back in 2 weeks. 2. Leukocytosis. This could be due to infection, concerned about chronic myelogenous leukemia. Family aware. Workup could be done as an outpatient. He already have an appointment. Other medical problem seems to be stable. Discussed with the patient. Discussed with Internal Medicine. MD GALA Bustos/MATTY /[id number]
--- NOTE | 2018-10-19 05:17 | Discharge Summary ---
FINAL DISCHARGE DIAGNOSES: 1. Acute diverticulitis, improving. 2. Nausea, vomiting, and dehydration, resolved. 3. History of diverticulitis. 4. Leukocytosis, presumed to be from a myeloproliferative state with no evidence of any infection to explain this etiology, will need to follow up with Hematology, which I have discussed this with the family and the daughter as well as the patient as an outpatient needing flow cytometry. 5. Hyperlipidemia. 6. Benign prostatic hypertrophy. 7. Depression. 8. History of coronary artery disease. 9. History of atrial fibrillation, on anticoagulation. 10. There is a 1.4 cm cystic lesion pancreatic tail, will need outpatient followup with GI with an MRI. CONSULTANTS: We had Hematology/Oncology, Infectious Disease, GI. PHYSICAL EXAMINATION: VITAL SIGNS: Temperature is 96.1, pulse 63, respiratory rate is 20, blood pressure 118/58, pulse ox 95% on room air. The patient was afebrile throughout the hospital course. LABORATORY DATA: Labs show white count was 24, hemoglobin 9.9, hematocrit is 31, platelets of 231. Chemistry; sodium 139, potassium 3.9, chloride 108, bicarb 24, anion gap of 15, BUN is 11, creatinine is 0.96, glucose is 93, calcium is 8.4. LFTs were normal. Total bilirubin was 0.8. Troponins were negative. CK 133. Albumin was 2.9. Lipase was 15. Urinalysis; wbc 6 to 10, 1+ protein, cloudy urine. C diff was negative. MICROBIOLOGY: None. IMAGING STUDIES: CT abdomen pelvis on 10/13/2018, showed diffuse diverticulosis of the sigmoid colon with associated mild hyperemia and minimal fat stranding suggestive of early diverticulitis. Repeat CT abdomen and pelvis on 10/17/2018, showed similar appearance of the sigmoid colon, where there is diffuse diverticulosis with subtle findings of diverticulitis. No abscess or perforation. There was evidence of a 1.4 cm cystic lesion in the pancreatic tail, which he will need outpatient followup with GI with an MRI. I discussed this with the family at bedside. They verbalized to follow up closely. I also discussed this with GI. They understood the plan of care. HOSPITAL COURSE: This is an 87-year-old male, who came into the ED with complaints of abdominal pain, nausea, vomiting, and underlying dehydration as well as mild diarrhea. The patient was admitted with CT imaging consistent with mild acute diverticulitis. The patient was found to have elevated white count, but was afebrile throughout the hospital course. He was started on IV antibiotics accordingly. GI was consulted. The patient improved symptomatically with no issues. The patient continued to be afebrile throughout the hospital course, but the patient's white count continued to be elevated. At that time, I decided to consult with Hematology/Oncology. 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 I also got ID involved to make sure that there was no other etiology as well. At this time, there is no obvious of any infectious etiology and ID recommended continuing oral Cipro and Flagyl as an outpatient and follow up with the Hematology and ID in 2 weeks' time. I also discussed this with GI, recommended repeat CT abdomen and pelvis, which was performed, that shows no evidence of any abscess or any perforation. It did show some subtle changes of diverticulitis. It did show 1.4 cm cystic lesion in the pancreatic tail, which we recommended MRI as an outpatient. I discussed this with the daughter and the patient at bedside with the nurse present and they agreed to follow up with GHADA Thomas as an outpatient. I also discussed this with Dr. Birch as well by phone and he reports that they can follow up as an outpatient in relation to his pancreatic tail cystic lesion for further evaluation. The patient was cleared for discharge by Hematology/Oncology, ID, and GI. Once again, I have discussed his white count elevation with the family thoroughly. The patient is stable, afebrile, tolerating diet, ambulating, has no complaints, and they are going to follow up accordingly as an outpatient in the event this is some sort of myeloproliferative disorder. Family verbalized understanding. On the day of discharge, vital signs were stable, labs reviewed and stable. The patient is seen and evaluated, examined thoroughly on the day of discharge. No other complaints. The patient verbalized understanding and agrees to plan of care to follow up as an outpatient with PCP in 1 week and the consultants GI in 2 weeks, Hematology in 1 week, and ID in 2 weeks' time. MEDICATIONS: See med reconciliation form. DISPOSITION: Home. CONDITION: Stable. DIET: Heart healthy. In the event of any worsening symptoms, the patient was advised to come back to the ED for further evaluation. Discharge summary took greater than 35 minutes. MD SHANE Merritt/MODJustina /[id number]
== END 2018-10-18 19:25 | disposition home or self-care (01) | DRG 392 ==
LOC: ER 15:42 → ERHOLD 21:10 → IMCU 22:20 → MED/SURG3 10-17 21:23
PROVIDERS: ADMIT Internal Medicine; ATTEND Internal Medicine
DX: K57.32 Diverticulitis of large intestine without perforation or abscess without bleeding (principal); K86.2 Cyst of pancreas; C92.10 Chronic myeloid leukemia, BCR/ABL-positive, not having achieved remission; I48.2 Chronic atrial fibrillation; I10 Essential (primary) hypertension; Z86.73 Personal history of transient ischemic attack (TIA), and cerebral infarction without residual deficits; N40.0 Benign prostatic hyperplasia without lower urinary tract symptoms; Z95.0 Presence of cardiac pacemaker; E78.5 Hyperlipidemia, unspecified; E86.0 Dehydration; F32.9 Major depressive disorder, single episode, unspecified; I25.10 Atherosclerotic heart disease of native coronary artery without angina pectoris; L89.321 Pressure ulcer of left buttock, stage 1; L89.311 Pressure ulcer of right buttock, stage 1
CPT/HCPCS: 36415; 74177; 80048; 80053; 81001; 82150; 82550; 82553; 83690; 83735; 84484; 85025; 87493; 97139; 99284; J1956; J7030; J7050; Q9967

== ENCOUNTER → 2019-10-09 | Outpatient (CLI) | payer MEDICARE, BC ==
[~2019-10-09] MED LIST changes: +FINASTERIDE5 MG PO; +IOPAMIDOL 370 MG/ML 200 ML INFUS..BTL INJ ONE; +OMEPRAZOLE40 MG PO; +SIMVASTATIN20 MG PO; +SODIUM CHLORIDE 0.9% 50ML 50 ML ONE; +XARELTO20 MG PO
[2019-10-09 08:26] LABS: BLOOD UREA NITROGEN 18 mg/dL (7-26); BUN/CREATININE RATIO 17 (6-25); CREATININE, SERUM 1.05 mg/dL (0.72-1.25); EST GLOMERULAR FILTRATION RATE > 60 ML/MIN (60-)
--- NOTE | 2019-10-09 09:23 | Diagnostic Imaging Report ---
EXAM: CT Abdomen and Pelvis WITH intravenous contrast INDICATION: Pancreatic cyst COMPARISON: CT abdomen/pelvis 04/23/2019, 10/17/2018 TECHNIQUE: Abdomen and pelvis were scanned utilizing a multidetector helical scanner from the lung base to the pubic symphysis after administration of IV contrast. Coronal and sagittal reformations were obtained. Routine protocol was performed. Scan was performed during portal venous phase. IV CONTRAST: 100mL of Isovue 370 ORAL CONTRAST: Water RADIATION DOSE: Total DLP: 730 mGy*cm Dose modulation, iterative reconstruction, and/or weight based adjustment of the mA/kV was utilized to reduce the radiation dose to as low as reasonably achievable. FINDINGS: LOWER THORAX: Multichamber cardiomegaly. Pacemaker lead partially visualized. Mild bibasilar dependent subsegmental atelectasis. HEPATOBILIARY: No focal hepatic lesions. No biliary ductal dilatation. The gallbladder appears unremarkable. SPLEEN: Scattered calcified granulomas in the nonenlarged spleen. PANCREAS: No significant interval change in pancreatic tail cystic lesion, measuring 1.6 cm. ADRENALS: No adrenal nodules. KIDNEYS/URETERS: No hydronephrosis, stones, or solid mass lesions. Unchanged renal cysts. PELVIC ORGANS/BLADDER: Prostatomegaly to 5.4 cm with indentation of the posterior bladder. PERITONEUM / RETROPERITONEUM: No free air or fluid. LYMPH NODES: No lymphadenopathy. VESSELS: Moderate atherosclerotic calcifications of the nonaneurysmal abdominal aorta and major branches. Unchanged subcentimeter calcified splenic artery aneurysm. GI TRACT: Severe sigmoid diverticulosis. No CT evidence of diverticulitis. No abnormal bowel thickening. No bowel obstruction. BONES AND SOFT TISSUES: No acute osseous injury. No suspicious lytic or blastic lesions. Unchanged loss of vertebral body height at L3. Multilevel degenerative changes. 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 Severe sigmoid diverticulosis. No CT evidence of diverticulitis. Prostatomegaly. Signed by: Lucille Mark MD on 10/09/2019 9:20 AM
== END ==
LOC: CT 07:43
PROVIDERS: ATTEND Internal Medicine
DX: K86.2 Cyst of pancreas (principal)
CPT/HCPCS: 36415; 74177; 82565; 84520; Q9967